=== PATIENT | female | born 1970 | race Caucasian/White ===

== ENCOUNTER 2016-10-23 14:57 | Emergency (ER) | payer SELFPAY | END 2016-10-23 17:44 | disposition home or self-care (01) | LOC: D.ER 14:57 | DX: S99.911A Unspecified injury of right ankle, initial encounter (principal); W13.8XXA Fall from, out of or through other building or structure, initial encounter; Y93.89 Activity, other specified; Y92.89 Other specified places as the place of occurrence of the external cause ==